=== PATIENT | male | born 1950 | race Caucasian/White ===

== ENCOUNTER 2018-03-01 15:57 | Outpatient (CLI) | payer MEDICARE ==
--- NOTE | 2018-03-01 16:47 | RAD ---
RIGHT HAND: 03/01/18 Three views. HISTORY: Injury with pain. Loss of the radiocarpal joint. Deformity of the scaphoid may indicate an old fracture. Degenerative c hanges in the intercarpal joints. Moderate to severe degenerative changes of the first carpometacarpa l. Deformity of the first metacarpal appears consistent with old fracture. Degenerative changes involving the DIP joints. No acute fracture identified. IMPRESSION: Chronic degenerative changes as described. No acute fracture identified. POS: JUJU
== END 2018-03-01 15:58 | disposition home or self-care (01) ==
LOC: RAD-FRANK 15:57
PROVIDERS: ATTEND Nurse Practitioner Family
DX: S69.91XA Unspecified injury of right wrist, hand and finger(s), initial encounter (principal); M18.11 Unilateral primary osteoarthritis of first carpometacarpal joint, right hand; M19.041 Primary osteoarthritis, right hand

== ENCOUNTER 2019-12-23 09:37 | Outpatient (CLI) | payer MEDICARE ==
--- NOTE | 2019-12-23 10:47 | MMO ---
Bilateral MAMMO Bilat Diag [facility]E. CLINICAL HISTORY: Patient is 69 years old and is seen for diagnostic exam,lump or thickening and pain in the right breast. The patient has no family history of breast cancer. The patient has no personal history of cancer. VIEWS: The views performed were: bilateral craniocaudal with tomosynthesis; bilateral mediolateral oblique with tomosynthesis; and bilateral mediolateral with tomosynthesis. FILMS COMPARED: The present examination has been compared to a prior imaging study performed at [facility] on 12/23/2019. This study has been interpreted with the assistance of computer-aided detection. MAMMOGRAM FINDINGS: The breasts are almost entirely fat. There are no suspicious masses, suspicious calcifications, or new areas of architectural distortion. Mild increased density is noted in the lateral retroareolar region on the right, demonstrating imaging characteristics typical of gynecomastia. IMPRESSION: THERE IS NO MAMMOGRAPHIC EVIDENCE OF MALIGNANCY. THE RESULTS OF THIS EXAM WERE SENT TO THE PATIENT. ACR BI-RADS Category 1 - Negative MAMMOGRAPHY NOTE: 1. A negative mammogram report should not delay a biopsy if a dominant of clinically suspicious mass is present. 2. Approximately 10% to 15% of breast cancers are not detected by mammography. 3. Adenosis and dense breasts may obscure an underlying neoplasm. Reported by: ANGELITA FLORES MD Electonically Signed: [id number]
--- NOTE | 2019-12-23 11:50 | ULT ---
FOCUSED ULTRASOUND OF THE RIGHT BREAST: DATE: 12/23/2019. COMPARISON: None. HISTORY: Palpable area, pain, right retroareolar region. FINDINGS: Focused ultrasound in the right retroareolar region in the area of pain demonstrates an angulated hyp oechoic area typical of gynecomastia. No solid mass lesion or abnormal shadowing. IMPRESSION: BIRADS 2 - benign findings. Sonographic findings are consistent with gynecomastia. POS: OFF
== END 2019-12-23 09:38 | disposition home or self-care (01) ==
LOC: BICMAMMO 09:37
PROVIDERS: ATTEND Internal Medicine
DX: N64.4 Mastodynia (principal)
CPT/HCPCS: 76642; 77066; G0279

== ENCOUNTER 2020-02-05 09:15 | Outpatient (CLI) | payer MEDICARE ==
--- NOTE | 2020-02-05 09:43 | RAD ---
EXAM: Chest PA and lateral: HISTORY: Chest wall pain. COMPARISON: 11/25/2013 FINDINGS: Sternotomy wires are demonstrated. The inferior most sternotomy wire appears to be broken. Remaining sternotomy wires appear to be intact. Heart: Normal cardiac silhouette Aorta: Atherosclerosis Pulmonary vessels: Normal Costophrenic angles: Costophrenic angles are clear. Lungs: No consolidation or masses. Pneumothorax: No pneumothorax Osseous structures: There appears to be moderate chronic compression fracture in the distal most thor acic spine, incompletely evaluated. IMPRESSION: 1. No acute cardiopulmonary process 2. Atherosclerosis aortic knob 3. Inferior most sternotomy wire is broken. 4. Moderate chronic compression fracture in the distal most thoracic spine, incompletely evaluated
--- NOTE | 2020-02-05 09:45 | RAD ---
Exam: 2 views sternum HISTORY: Popping sound in the sternum. Previous CABG. FINDINGS: There is a inferior most sternotomy wires broken. Remaining sternotomy wires are intact. No obvious irregularity with regards to the sternum. IMPRESSION: Inferior most sternotomy wire is broken.
== END 2020-02-05 09:16 | disposition home or self-care (01) ==
LOC: BICRAD 09:15
PROVIDERS: ATTEND Internal Medicine
DX: R07.89 Other chest pain (principal); I70.0 Atherosclerosis of aorta; M48.54XD Collapsed vertebra, not elsewhere classified, thoracic region, subsequent encounter for fracture with routine healing; Z95.1 Presence of aortocoronary bypass graft
CPT/HCPCS: 71046; 71120

== ENCOUNTER 2020-06-01 15:15 | Outpatient (CLI) | payer MEDICARE ==
--- NOTE | 2020-06-01 15:51 | RAD ---
RIGHT WRIST 3 VIEWS: Date: 06/01/2020 HISTORY: Right wrist pain, arthritis. FINDINGS/IMPRESSION: There are degenerative changes most prominent at the first carpometacarpal and radiocarpal joints. No acute fracture, dislocation, or bony destruction identified. POS: KM
== END 2020-06-01 15:16 | disposition home or self-care (01) ==
LOC: BICRAD 15:15
PROVIDERS: ATTEND Internal Medicine
DX: M19.031 Primary osteoarthritis, right wrist (principal)

== ENCOUNTER 2021-03-03 10:39 | Outpatient (CLI) | payer MEDICARE | END 2021-03-03 10:40 | disposition home or self-care (01) | LOC: BICRAD 10:39 | PROVIDERS: ATTEND Internal Medicine | DX: M54.42 Lumbago with sciatica, left side (principal); M54.41 Lumbago with sciatica, right side; M43.16 Spondylolisthesis, lumbar region; M47.816 Spondylosis without myelopathy or radiculopathy, lumbar region; Z87.81 Personal history of (healed) traumatic fracture | CPT/HCPCS: 72100 ==